=== PATIENT | female | born 1990 | race African-American/Black ===

== ENCOUNTER 2019-11-08 17:18 | Emergency (ER) | payer BC, SELFPAY ==
[2019-11-08 17:33] VITALS: BP 143/94; PULSE 84; RESP 16; TEMP 37.4; O2SAT 98
--- NOTE | 2019-11-08 17:43 | ED.DENTAL ---
HPI - Dental/Oral General Chief complaint: Dental/Oral Stated complaint: swollen gums Time Seen by Provider: 11/08/19 17:37 Source: patient and RN notes reviewed Mode of arrival: ambulatory Limitations: no limitations History of Present Illness HPI Narrative: Patient presents today complaining of right lower tooth and gum pain and upper jaw pain and swelling since yesterday. Pain has been worsening since onset. States she does have a broken tooth and her dentist cancelled her appointment due to the pandemic and has not yet rescheduled it. She currently rates her pain 10/10 and has been taking motrin without relief. Related Data Allergies Allergy/AdvReac Type Severity Reaction Status Date / Time No Known Allergies Allergy Verified 11/08/19 17:37 Review of Systems Constitutional: Constitutional: Denies chills and Denies fever(s) Eyes: Eyes: Reports as per HPI ENT: Denies dysphagia and Denies sore throat Comments: Denies difficulty swallowing. +tooth pain and jaw swelling. Cardiovascular: Cardiovascular: Reports as per HPI Respiratory: Respiratory: Reports as per HPI Gastrointestinal: Gastrointestinal: Reports as per HPI Musculoskeletal: Musculoskeletal: Reports as per HPI Integumentary/Breasts: Skin/Breast: Reports as per HPI Neurologic: Reports as per HPI Psychiatric: Psychiatric: Reports as per HPI PMFSH Comments Past Medical, surgical, and family hx reviewed and are noncontributory to presenting complaint. See nurses notes for more history. Exam Const: General: healthy appearing, no acute distress and alert Nutritional Appearance: well nourished Orientation/consciousness: patient oriented x3 HENMT: General nose exam: Normal external nose present, Normal nares present and no nasal discharge noted Mouth: Yes lip normal and Yes moist mucous membranes Other: large dental ruperto, tooth #30. No obvious periapical abscess. Mild swelling of the gingiva. Mild right upper jaw swelling. Otherwise normal dentition. Eyes: Conjunctivae: conjunctivae normal Pupils: Equal, round and reactive pupils present Neck: Neck: normal visual inspection and no lymphadenopathy Chest: Chest palpation & inspection: normal inspection of the chest Resp: Effort & Inspection: normal respiratory effort Skin: General skin exam: normal color, no jaundice and no pallor Rashes: no rashes Neuro: General: patient oriented x3, moves all extremities and no focal motor deficits Speech: normal speech Extrem: General: normal to inspection Psych: Mental Status: mental status grossly normal Affect: normal affect Attitude: cooperative Course Vital Signs Vital signs: Vital Signs Temperature 99.3 F 11/08/19 17:33 Pulse Rate 84 11/08/19 17:33 Respiratory Rate 16 11/08/19 17:33 Blood Pressure 143/94 H 11/08/19 17:33 Pulse Oximetry 98 11/08/19 17:33 Temperature 99.3 F 11/08/19 17:33 Pulse Rate 84 11/08/19 17:33 Respiratory Rate 16 11/08/19 17:33 Blood Pressure 143/94 H 11/08/19 17:33 Pulse Oximetry 98 11/08/19 17:33 Reviewed. patient has been instructed to follow up with her PCP regarding this. MDM - Dental/Oral Differential Diagnosis Differential diagnosis: Likely gingival abscess, dental caries, toothache, dental abscess and fracture of tooth Critical Care Time Critical Care Time Critical Care Time: No Discharge Plan Discharge Clinical Impression: Infected dental caries Patient Disposition: Home, Self-Care Condition: Stable Instructions: Antibiotic Form, Dental Abscess (ED) Additional Instructions: Take the amoxicillin as prescribed until gone. Take tylenol or motrin at home for pain. Follow up with your dentist as soon as possible. Your blood pressure is elevated today. Please follow up with your PCP regarding this. Patient Language: Slovak Prescriptions: New amoxicillin 875 mg tablet 875 mg PO Q12H 10 Days Qty: 20 RF: 0 Follow-up/Referrals: VERITO
== END 2019-11-08 17:49 | disposition home or self-care (01) ==
PROVIDERS: Emergency Provider Nurse Practitioner
DX: K02.9 Dental caries, unspecified (principal)
CPT/HCPCS: 99203; G0463

== ENCOUNTER 2020-02-26 09:44 | Outpatient (CLI) | payer BC, SELFPAY ==
--- NOTE | ~2020-02-26 | US_ITS ---
EXAMINATION: US pelvic complete w TV DATE: 02/26/2020 11:08 INDICATION: Infertility Comparison:No prior studies for comparison. TECHNIQUE: Multiple transabdominal and endovaginal sonographic images of the pelvis performed. FINDINGS: The uterus measures 9.5 x 5.4 x 8 cm. There is a uterine mass at the fundus measuring 4.8 x 4.9 x 4.7 cm, consistent with fibroid. The endometrial complex measures 1.4 cm. The right ovary measures 3.8 x 2.6 x 3.3 cm and the left ovary measures 2.6 x 2 x 1.8 cm. There is a 1.8 cm right ovarian cyst. There is free fluid in the pelvis. There are no abnormal masses seen on either side. IMPRESSION: 1. Uterine fibroid at the fundus measuring 4.9 cm maximum dimension. 2: Endometrial thickening measuring 1.4 cm. Reviewed, dictated and finalized at location A.
== END 2020-02-26 09:45 ==
PROVIDERS: Visit Provider Student in an Organized Health Care Education/Training Program
DX: Z78.0 Asymptomatic menopausal state (principal); D25.9 Leiomyoma of uterus, unspecified
CPT/HCPCS: 76830; 76856

== ENCOUNTER 2020-12-06 15:55 | Outpatient (CLI) | payer BC, SELFPAY ==
[2020-12-06 16:10] LABS: Basophils Absolute Auto 0.1 K/mm3 (0.0-0.1); Basophils Percent Auto 0.7 % (0.2-1.2); Eosinophils Absolute Auto 0.2 K/mm3 (0-0.3); Eosinophils Percent Auto 2.5 % (0-4.4); Hematocrit 34.6 % (37.0-47.0); Hemoglobin 11.2 g/dL (12.0-15.0); Immature Granulocyte Absolute 0.02 K/mm3 (0.00-0.031); Immature Granulocyte Percent A 0.3 % (0-0.5); Lymphocytes Percent Auto 36.3 % (18.3-44.2); Mean Corpuscular HGB Conc 32.4 g/dl (32-36); Mean Corpuscular Hemoglobin 29.5 pg (26-34); Mean Corpuscular Volume 91.1 fl (80-100); Mean Platelet Volume 9.4 fl (7.4-10.4); Monocytes Absolute Auto 0.5 K/mm3 (0.1-0.6); Monocytes Percent Auto 7.4 % (2.6-8.5); Neutrophils Absolute Auto 3.6 K/mm3 (1.3-6.7); Neutrophils Percent Auto 52.8 % (45.5-73.1); Platelet Count Result 569 k/mm3 (150-375); Red Cell Distribution Width 12.4 % (11.5-14.5); White Blood Count 6.9 K/mm3 (4.5-10.0)
[2020-12-06 16:59] LABS: Iron 48 ug/dL (37-170)
[2020-12-06 17:00] LABS: Erythrocyte Sedimentation Rate 65 mm/hr (0-20)
[2020-12-06 17:01] LABS: Alanine Aminotransferase 15 U/L (4-35); Albumin Level 4.1 g/dL (3.5-5.1); Alkaline Phosphatase 85 U/L (38-126); Anion Gap 7 mmol/L (8-16); Aspartate Amino Transferase 19 U/L (14-36); Bilirubin,Total < 0.1 mg/dL (0.2-1.3); Blood Urea Nitrogen 10 mg/dL (7-17); CRP 4.4 mg/dL (<1.0); Calcium 9.7 mg/dL (8.4-10.2); Carbon Dioxide 30 mmol/L (22-30); Chloride 101 mmol/L (98-107); Estimated Glomerular Filt Rate > 60; Glucose 92 mg/dL (65-105); Potassium 3.8 mmol/L (3.4-5.0); Sodium 138 mmol/L (137-145)
[2020-12-06 17:11] LABS: Percent Iron Saturation 15 % (20-50)
== END 2020-12-06 15:56 | disposition home or self-care (01) ==
LOC: ANHLAB 15:57
PROVIDERS: PCP Family Medicine; Visit Provider Internal Medicine Hematology & Oncology
DX: R79.89 Other specified abnormal findings of blood chemistry (principal); D50.0 Iron deficiency anemia secondary to blood loss (chronic)
CPT/HCPCS: 36415; 80053; 82728; 83540; 83550; 85025; 85652; 86140

== ENCOUNTER 2021-10-11 15:16 | Outpatient (CLI) | payer BC, SELFPAY ==
--- NOTE | ~2021-10-11 | US_ITS ---
US OB <=14 wk fetus w TV DATE: 10/11/2021 15:48 INDICATION: Vaginal spotting during first trimester TECHNIQUE: Real-time imaging via transabdominal and transvaginal approaches COMPARISON: 02/26/2020 pelvic ultrasound FINDINGS: The uterus measures 9.6 cm height, 5.6 cm anteroposterior and 6.3 cm transverse dimension. There is a large fundal fibroid measuring up to 6.3 cm x 6.2 x 5.4 cm. Intrauterine gestational sac is noted with yolk sac. Size is too small for accurate gestational datin g. Right ovary 6.9 x 6.5 x 5.8 cm with 5 x 6.9 x 6.3 cm cyst. Left ovary measures 3.4 x 2.9 x 1.9 cm. There is mild free fluid in the pelvis. IMPRESSION: Early intrauterine gestational sac is identified, too small to accurately date. Consider short-term follow-up ultrasound imaging Large uterine fibroid Up to 6.9 cm right ovarian cyst Reviewed, dictated and finalized at Location A. Reviewed, dictated and finalized at location A. IMPRESSION: Early intrauterine gestational sac is identified, too small to accu rately date. Consider short-term follow-up ultrasound imaging Large uterine fibroid Up to 6.9 cm right ovarian cyst
== END 2021-10-11 15:17 ==
PROVIDERS: Visit Provider Student in an Organized Health Care Education/Training Program
DX: O26.851 Spotting complicating pregnancy, first trimester (principal); O34.81 Maternal care for other abnormalities of pelvic organs, first trimester; Z3A.00 Weeks of gestation of pregnancy not specified; D25.9 Leiomyoma of uterus, unspecified; N83.201 Unspecified ovarian cyst, right side
CPT/HCPCS: 76801; 76817

== ENCOUNTER 2021-10-25 10:02 | Outpatient (CLI) | payer BC, SELFPAY ==
--- NOTE | ~2021-10-25 | US_ITS ---
EXAMINATION: US OB <=14 wk fetus w TV EXAM DATE: 10/25/2021 10:29 INDICATION: O20.9 - Hemorrhage in early , unspecified. 1st trimester. TECHNIQUE: Pelvic obstetrical transabdominal and transvaginal sonogram was performed by a technologi . There are multiple grayscale and Doppler images available for interpretation. Comparison is made to prior examination from 10/11/2021. FINDINGS: The uterus measures 12.1 x 5.8 x 8.6 cm, with intrauterine gestation sac and pole kaz ntified. The pole measures 1.0 cm, age by ultrasound 7 weeks 1 day. There is no cardiac a ctivity as would be expected for a pole this size. There is a 5.5 cm fibroid in the left side o f the uterus. Ovaries not visualized. IMPRESSION: demise. Reviewed, dictated and finalized at location B. IMPRESSION: demise.
== END 2021-10-25 10:03 ==
PROVIDERS: Visit Provider Student in an Organized Health Care Education/Training Program
DX: O02.1 Missed abortion (principal)
CPT/HCPCS: 76801; 76817

== ENCOUNTER 2021-11-02 14:54 | Outpatient (CLI) | payer BC, SELFPAY ==
--- NOTE | ~2021-11-02 | US_ITS ---
EXAMINATION: US pelvic complete w TV EXAM DATE: 11/02/2021 16:06 INDICATION: O03.4 - Incomplete spontaneous without complication . Retained products of casi ption. TECHNIQUE: Pelvic transabdominal and transvaginal sonogram was performed. There are multiple graysca le and Doppler images available for interpretation. Comparison is made to prior examination from 10/25. FINDINGS: Uterus measures 9.3 x 6.6 x 4.4 cm, previously seen intrauterine gestation is no longer id entified. Again there is a 6 cm fibroid. Endometrial stripe measures 6 mm, within normal limits. The re is no free pelvic fluid. Right adnexa: The ovary measures 3.5 x 2.8 x 1.8 cm and is morphologically normal. Ovarian vascular f low confirmed. Left adnexa: The ovary is not identified. There is no adnexal mass. IMPRESSION: No intrauterine or extrauterine identified. Fibroid. Reviewed, dictated and finalized at location A.
[2021-11-02 15:15] LABS: Hematocrit 32.3 % (37.0-47.0); Hemoglobin 10.3 g/dL (12.0-15.0); Mean Corpuscular HGB Conc 31.9 g/dl (32-36); Mean Corpuscular Hemoglobin 29.5 pg (26-34); Mean Corpuscular Volume 92.6 fl (80-100); Platelet Count Result 406 k/mm3 (150-375); Red Blood Count 3.49 M/mm3 (4.2-5.4); Red Cell Distribution Width 14.3 % (11.5-14.5); White Blood Count 4.2 K/mm3 (4.5-10.0)
== END 2021-11-02 14:55 | disposition home or self-care (01) ==
LOC: ANHIMG 14:55
PROVIDERS: Student in an Organized Health Care Education/Training Program; Visit Provider Obstetrics & Gynecology
DX: O03.4 Incomplete spontaneous abortion without complication (principal); D25.9 Leiomyoma of uterus, unspecified
CPT/HCPCS: 36415; 76830; 76856; 85027

== ENCOUNTER 2022-09-11 15:24 | Outpatient (CLI) | payer OTHER, MEDICAID, SELFPAY ==
[2022-09-15 04:00] LABS: Progesterone 31.5 ng/mL (***)
== END 2022-09-11 15:25 | disposition home or self-care (01) ==
PROVIDERS: Visit Provider Obstetrics & Gynecology
DX: O09.299 Supervision of pregnancy with other poor reproductive or obstetric history, unspecified trimester (principal); Z3A.00 Weeks of gestation of pregnancy not specified
CPT/HCPCS: 36415; 84144; 84702

== ENCOUNTER 2022-09-13 16:07 | Outpatient (CLI) | payer OTHER, MEDICAID, SELFPAY | END 2022-09-13 16:08 | disposition home or self-care (01) | LOC: ANHLAB 16:09 | PROVIDERS: Visit Provider Obstetrics & Gynecology | DX: O09.299 Supervision of pregnancy with other poor reproductive or obstetric history, unspecified trimester (principal) | CPT/HCPCS: 36415; 84702 ==

== ENCOUNTER 2022-09-30 15:03 | Outpatient (CLI) | payer OTHER, MEDICAID, SELFPAY ==
--- NOTE | ~2022-09-30 | US_ITS ---
EXAMINATION: US OB <=14 wk fetus w TV DATE: 09/30/2022 17:51 INDICATION: viability assessment during first trimester TECHNIQUE: Real-time pelvic transabdominal and transvaginal ultrasound was performed. COMPARISON: 11/02/2021 FINDINGS: The uterus measures 12.1 x 5.7 x 8.9 cm. There is an intrauterine gestational sac. A yolk s ac is identified. heart motion is identified measuring 169 beats per minute (bpm) by M-mode Dop pler. The crown rump length measures 1.7 cm, which correlates with an estimated gestational age of 8 weeks and 1 day(s) (+/-) 4 day(s). The right ovary measures 3.6 x 2.7 x 2.9 cm. A fibroid is again seen projecting into the left adnexa. There is no free fluid in the pelvis. IMPRESSION: 1. Live intrauterine with an estimated gestational age of 8 weeks and 1 day(s) (+/-) 4 day( s) and an estimated delivery date of 05/11/2023. Reviewed, dictated and finalized at location A. ANCE KEEPER IMPRESSION: 1. Live intrauterine with an estimated gestational age of 8 weeks and 1 day(s) (+/-) 4 day(s) and an estimated delivery date of 05/11/2023.
== END 2022-09-30 15:04 | disposition home or self-care (01) ==
PROVIDERS: PCP Emergency Medicine; Visit Provider Obstetrics & Gynecology
DX: O36.80X0 Pregnancy with inconclusive fetal viability, not applicable or unspecified (principal); Z3A.08 8 weeks gestation of pregnancy
CPT/HCPCS: 76801; 76817

== ENCOUNTER 2023-04-24 20:12 | Observation (INO) | payer OTHER, MEDICAID, SELFPAY ==
[2023-04-24] VITALS (19 sets, daily range): BP systolic 122–136; BP diastolic 69–101; PULSE 84–103; O2SAT 97–100
--- NOTE | 2023-04-24 21:24 | OBADM ---
This patient, Tonya Nichols, admitted to the OB room Labor/Delivery/Recovery 105 for observation. Patient/family oriented to hospital policies and general routines including ID bracelet, bed and alarms, visiting hours, pain management, procedures, bathroom and other care routines, personal items, smoking policy, room service/diet, and visiting hours. Patient/Family are encouraged to report perceived risks to care and to ask questions if they do not understand what they are told or what they should do.
[2023-04-24 21:51] LABS: Appearance Urine Clear (Clear); Bilirubin Urine Negative (Negative); Blood Urine Negative (Negative); Color Urine Yellow (Yellow); Glucose Urine UA Negative (Negative); Ketones Urine Negative (Negative); Leukocyte Esterase Ur Negative LEU/UL (Negative); Nitrate Urine Negative (Negative); Protein Urine Negative (Negative); Specific Grav Ur 1.011 (1.001-1.035); pH Urine 6.5 (5.0-9.0)
[2023-04-24 21:55] LABS: Add Urine Microscopic? NO
--- NOTE | 2023-04-28 11:10 | PM.OBTRLD ---
OB - Triage/Final Diagnosis Visit Information Comments/Additional reasons for admission: I have assessed the risk for this patient, Tonya Nichols, and determined that she would benefit from observation care. Evaluation Laboratory results: Laboratory Tests 04/24/23 21:44 Urine Color Yellow Urine Appearance Clear Urine pH 6.5 Ur Specific Dubberly 1.011 Urine Protein Negative Urine Glucose (UA) Negative Urine Ketones Negative Ur Blood (Man) Negative Urine Nitrate Negative Urine Bilirubin Negative Urine Urobilinogen 1.0 Leukocyte Esterase Rfl Negative Comments: I was not informed of patients last blood pressure. Prior to her discharge. Final Diagnosis (1) Threatened labor, antepartum: Code(s): O47.00 - False labor before 37 completed weeks of gestation, unspecified trimester Status: Acute
== END 2023-04-24 22:15 | disposition home or self-care (01) ==
PROVIDERS: Admitting Provider Obstetrics & Gynecology; PCP Emergency Medicine; Visit Provider Obstetrics & Gynecology
DX: O47.00 False labor before 37 completed weeks of gestation, unspecified trimester (principal); Z3A.00 Weeks of gestation of pregnancy not specified
CPT/HCPCS: 81003; G0378; G0379

== ENCOUNTER 2023-05-07 17:12 | Inpatient (IN) | payer OTHER, SELFPAY ==
[2023-05-07] VITALS (10 sets, daily range): BP systolic 97–139; BP diastolic 56–80; PULSE 92–104; TEMP 36.3; BMI 42.3
--- NOTE | 2023-05-07 17:43 | LDADM ---
This patient, Tonya Nichols, was admitted to Labor/Delivery/Recovery 105 on 05/07/23 at 17:12. Plans for labor, pain management and were discussed with patient. Patient/family oriented to hospital policies and general routines including ID bracelet, bed and alarms, visiting hours, pain management, procedures, bathroom and other care routines, personal items, smoking policy, room service/diet and guest tray routines, security routines, and visiting hours. Patient/Family are encouraged to report perceived risks to care and to ask questions if they do not understand what they are told or what they should do. See OBIX for further documentation.
[2023-05-07 18:42] LABS: Basophils Percent Auto 0.3 % (0.2-1.2); Eosinophils Absolute Auto 0.1 K/mm3 (0-0.3); Eosinophils Percent Auto 0.8 % (0-4.4); Hemoglobin 11.2 g/dL (12.0-15.0); Immature Granulocyte Absolute 0.05 K/mm3 (0.00-0.031); Immature Granulocyte Percent A 0.8 % (0-0.5); Lymphocytes Absolute Auto 1.56 K/mm3 (0.9-3.2); Lymphocytes Percent Auto 23.6 % (18.3-44.2); Mean Corpuscular HGB Conc 32.9 g/dl (32-36); Mean Corpuscular Hemoglobin 30.9 pg (26-34); Mean Corpuscular Volume 93.7 fl (80-100); Mean Platelet Volume 10.4 fl (7.4-10.4); Monocytes Absolute Auto 0.4 K/mm3 (0.1-0.6); Monocytes Percent Auto 6.2 % (2.6-8.5); Neutrophils Absolute Auto 4.5 K/mm3 (1.3-6.7); Neutrophils Percent Auto 68.3 % (45.5-73.1); Platelet Count Result 310 k/mm3 (150-375); Red Blood Count 3.63 M/mm3 (4.2-5.4); Red Cell Distribution Width 14.4 % (11.5-14.5); White Blood Count 6.6 K/mm3 (4.5-10.0)
[2023-05-07] MEDS: DINOPROSTONE 10 MG VAG INSERT VAGINAL (18:56)
--- NOTE | 2023-05-07 20:53 | WPDANESEPPF ---
Anes - Initial Pre Proc Eval Procedure: Labor epidural Date/Time: 05/07/23 20:53 Surgeon: Justin Yan MD Pre Op Diagnosis: Labor pain Pre Op Diagnosis: IOL Patient Data Age: 33 Gender: F Height: 1.5 m Weight: 95 kg Last Vital Signs Temp 36.3 C L 05/07/23 19:28 Pulse 99 05/07/23 20:31 BP 124/71 05/07/23 20:31 O2 Del Method Room Air 05/07/23 17:43 Allergies Allergy/AdvReac Type Severity Reaction Status Date / Time No Known Allergies Allergy Verified 05/01/23 10:56 Home Medications Medication Instructions Recorded Confirmed Type prenat.vits,delores,xvu-qmkx-qvbpx 1 tablet PO DAILY 05/15/22 05/07/23 History ferrous sulfate 325 mg (65 mg 325 mg PO DAILY 03/06/23 05/07/23 History iron) tablet Laboratory Tests 05/07/23 17:41 WBC 6.6 K/mm3 (4.5-10.0) RBC 3.63 L M/mm3 (4.2-5.4) Hgb 11.2 L g/dL (12.0-15.0) Hct 34.0 L % (37.0-47.0) MCV 93.7 fl (80-100) MCH 30.9 pg (26-34) MCHC 32.9 g/dl (32-36) RDW 14.4 % (11.5-14.5) Plt Count 310 k/mm3 (150-375) MPV 10.4 fl (7.4-10.4) Immature Gran % (Auto) 0.8 H % (0-0.5) Neut % (Auto) 68.3 % (45.5-73.1) Lymph % (Auto) 23.6 % (18.3-44.2) Tyler % (Auto) 6.2 % (2.6-8.5) Eos % (Auto) 0.8 % (0-4.4) Baso % (Auto) 0.3 % (0.2-1.2) Lymph # (Auto) 1.56 K/mm3 (0.9-3.2) Tyler # (Auto) 0.4 K/mm3 (0.1-0.6) Eos # (Auto) 0.1 K/mm3 (0-0.3) Baso # (Auto) 0.0 K/mm3 (0.0-0.1) Abs Immat Gran (auto) 0.05 H K/mm3 (0.00-0.031) Absolute Neuts (auto) 4.5 K/mm3 (1.3-6.7) Absolute Nucleated RBC 0.0 K/mm3 (0.0-0.012) Nucleated RBC % 0.0 % (0.0-0.2) RPR Pending Blood Type O Positive Antibody Screen Negative Patient hx anesthesia problems: none Family hx anesthesia problems: none Results Review: All pre-operative results and documents have been reviewed as part of the pre-operative evaluation. [facility] Past Medical History Medical History Encounter for other screening follow-up Irregular menses Missed x2 Oligomenorrhea Surgical History Surgical History History of abdominoplasty Family History Family History Mother Hypertension Diabetes mellitus Social History Social History Social History: Single Smoking status: Never smoker Second hand tobacco smoke exposure: No Alcohol intake: never Substance use: never Substance use type: does not use Lack of Transportation: No Lack of Food: Never True Current Housing: I Have Housing Concerned About Future Housing: No Difficulty Paying Gas/Electric Bills: No Difficulty Paying for Meds: No Currently Unemployed: No Education: Trade/Vocational Certificate Difficulty w/ Childcare or Family Care: No Living arrangements: alone Occupation/Education: occupation Gender identity (if verbalized by the patient): Female Spiritual care concerns: No Anes - Eval Final PreProcedure Day of Procedure 05/07/23 20:53 Patient weight: obese Heart: regular rate and rhythm Neurological: alert and oriented ASA classification: III Anesthesia type and monitoring: regional epidural and standard monitoring Results Review: All pre-operative results and documents have been reviewed as part of the pre-operative evaluation. Informed Consent: The patient's anesthetic plan and its attendant risks and benefits were discussed with the patient/family/POA. Questions were solicited and answers provided to the satisfaction of the patient/family/POA.
[2023-05-08] VITALS (251 sets, daily range): BP systolic 85–162; BP diastolic 35–141; PULSE 79–133; RESP 16–18; TEMP 36.2–36.8; O2SAT 91–100
[2023-05-08 07:23] LABS: Rapid Plasma Reagin Non-Reactive (NonReactive)
[2023-05-08] MEDS: OXYTOCIN 30 UNITS/NS 500 ML 30 UNITS/500 ML BAG 6 UNITS IV CONT (09:14)
[2023-05-08] MEDS: LACTATED RINGERS 1,000 ML 125 ML IV CONT ×2 (09:14→19:00)
--- NOTE | 2023-05-08 14:52 | PM.IMHP ---
H&P: HPI History of Present Illness Date/Time: 05/08/23 14:52 Chief Complaint: Medical induction of labort Narrative: She is a 33 y/o at 39 3/7 weeks by LMP Jul with an EDC of 05/11/2023 c/w 8 week ultrasound. She was admitted for MIL. PNC significant for GC txed and TONNY neg. Anterior lateral fibroid-6cm. Labs reviewed. GBS neg. Review of Systems Review of Systems: All systems reviewed & are unremarkable except as noted in HPI and below Constitutional: Constitutional: Reports no additional constitutional complaints and Denies headache(s) Eyes: Eyes: Denies spots in vision ENT: Reports system reviewed and no additional complaints, except as documented and Denies headache(s) Cardiovascular: Cardiovascular: Denies chest pain and Denies dyspnea Respiratory: Respiratory: Denies dyspnea Gastrointestinal: Gastrointestinal: Reports no additional gastrointestinal complaints Genitourinary: Genitourinary: Reports amenorrhea Musculoskeletal: Musculoskeletal: Reports no additional musculoskeletal complaints Integumentary/Breasts: Skin/Breast: Denies breast mass and Denies rash Neurologic: Denies headache(s) Psychiatric: Psychiatric: Reports no additional psychiatric complaints [facility] Past Medical History Medical History Encounter for other screening follow-up Irregular menses Missed x2 Oligomenorrhea Surgical History Surgical History History of abdominoplasty Family History Family History Mother Hypertension Diabetes mellitus Social History Social History Social History: Single Smoking status: Never smoker Second hand tobacco smoke exposure: No Alcohol intake: never Substance use: never Substance use type: does not use Lack of Transportation: No Lack of Food: Never True Current Housing: I Have Housing Concerned About Future Housing: No Difficulty Paying Gas/Electric Bills: No Difficulty Paying for Meds: No Currently Unemployed: No Education: Trade/Vocational Certificate Difficulty w/ Childcare or Family Care: No Living arrangements: alone Occupation/Education: occupation Gender identity (if verbalized by the patient): Female Spiritual care concerns: No Meds Home Medications and Allergies Home Medications Medication Instructions Recorded Confirmed Type prenat.vits,delores,ety-vnvy-kwvab 1 tablet PO DAILY 05/15/22 05/07/23 History ferrous sulfate 325 mg (65 mg 325 mg PO DAILY 03/06/23 05/07/23 History iron) tablet Allergies Allergy/AdvReac Type Severity Reaction Status Date / Time No Known Allergies Allergy Verified 05/01/23 10:56 Vital Signs Vital Signs - 24 hr 05/07/23 17:43 05/07/23 18:36 05/07/23 18:46 Temperature Pulse Rate 104 H 95 Respiratory Rate Blood Pressure 132/80 139/76 Pulse Oximetry Oxygen Delivery Room Air 05/07/23 19:01 05/07/23 19:31 05/07/23 20:01 Temperature Pulse Rate 96 94 93 Respiratory Rate Blood Pressure 130/78 128/80 128/77 Pulse Oximetry Oxygen Delivery 05/07/23 20:31 05/07/23 19:28 05/07/23 21:01 Temperature 97.4 F L Pulse Rate 99 97 Respiratory Rate Blood Pressure 124/71 128/60 Pulse Oximetry Oxygen Delivery 05/07/23 22:54 05/07/23 22:53 05/08/23 02:54 Temperature 97.3 F L 97.1 F L Pulse Rate 92 79 Respiratory Rate Blood Pressure 97/56 L 121/71 Pulse Oximetry Oxygen Delivery 05/08/23 07:00 05/08/23 09:14 05/08/23 09:31 Temperature 97.9 F 97.9 F Pulse Rate 87 Respiratory Rate 18 16 Blood Pressure 144/80 H Pulse Oximetry Oxygen Delivery 05/08/23 09:46 05/08/23 10:01 05/08/23 10:16 Temperature Pulse Rate 133 H 96 86 Respiratory Rate Blood Pressure
--- NOTE | 2023-05-08 15:02 | P.PNOB_ITS ---
OB - PN: Subj Subjective Date/time seen: 05/08/23 0715 Interval history: fht 135 Cat 1, ctx q 4-5, cervix 2/60/-2, AROM minimal clear fluid. Continue Pitocin induction. OB - PN: Obj Data Labs 05/07/23 17:41 Labs: Laboratory Results - last 24 hr 05/07/23 17:41 WBC 6.6 RBC 3.63 L Hgb 11.2 L Hct 34.0 L MCV 93.7 MCH 30.9 MCHC 32.9 RDW 14.4 Plt Count 310 MPV 10.4 Immature Gran % (Auto) 0.8 H Neut % (Auto) 68.3 Lymph % (Auto) 23.6 Harney % (Auto) 6.2 Eos % (Auto) 0.8 Baso % (Auto) 0.3 Lymph # (Auto) 1.56 Harney # (Auto) 0.4 Eos # (Auto) 0.1 Baso # (Auto) 0.0 Abs Immat Gran (auto) 0.05 H Absolute Neuts (auto) 4.5 Absolute Nucleated RBC 0.0 Nucleated RBC % 0.0 RPR Non-reactive Blood Type O Positive Antibody Screen Negative OB - PN A/P Time Spent With Patient Time: Total time spent is greater than 50% in coordination of care (as documented) at patient's floor/unit and/or counseling patient:
--- NOTE | 2023-05-08 15:03 | P.PNOB_ITS ---
OB - PN: Subj Subjective Date/time seen: 05/08/23 15:03 Interval history: fht 135 Cat 1, ctx q 4-5, cervix 60/-2, AROM minimal clear fluid. Continue Pitocin induction. Narrative: FHT 135, cat 1, pt feels rectal pressure and pain on right hip, cervix 60/-2. OB - PN: Obj Data Labs 05/07/23 17:41 Labs: Laboratory Results - last 24 hr 05/07/23 17:41 WBC 6.6 RBC 3.63 L Hgb 11.2 L Hct 34.0 L MCV 93.7 MCH 30.9 MCHC 32.9 RDW 14.4 Plt Count 310 MPV 10.4 Immature Gran % (Auto) 0.8 H Neut % (Auto) 68.3 Lymph % (Auto) 23.6 Wheeler % (Auto) 6.2 Eos % (Auto) 0.8 Baso % (Auto) 0.3 Lymph # (Auto) 1.56 Wheeler # (Auto) 0.4 Eos # (Auto) 0.1 Baso # (Auto) 0.0 Abs Immat Gran (auto) 0.05 H Absolute Neuts (auto) 4.5 Absolute Nucleated RBC 0.0 Nucleated RBC % 0.0 RPR Non-reactive Blood Type O Positive Antibody Screen Negative OB - PN A/P Time Spent With Patient Time: Total time spent is greater than 50% in coordination of care (as documented) at patient's floor/unit and/or counseling patient:
[2023-05-08] MEDS: CALCIUM CARBONATE (TUMS) 500 MG (200 MG ELEMENTAL) 400 MG PO (20:25)
[2023-05-09] VITALS (164 sets, daily range): BP systolic 106–164; BP diastolic 55–115; PULSE 77–125; RESP 16–24; TEMP 36.2–37.5; O2SAT 89–100
[2023-05-09] MEDS: LACTATED RINGERS 1,000 ML 125 ML IV CONT ×2 (00:52→05:22)
[2023-05-09] MEDS: AMPICILLIN 2 GM/NS 100 ML 2 GM/100 ML BAG IVPB (01:24)
[2023-05-09] MEDS: SODIUM CHLORIDE 0.9% IV 300 ML 600 ML I-UTERINE (03:15)
[2023-05-09] MEDS: AMPICILLIN 1 GM/NS 50 ML 1 GM/50 ML BAG IVPB (05:21)
[2023-05-09] MEDS: ceFAZolin 2 GM/D5W 50 ML 2 GM/50 ML BAG IVPB (07:57)
[2023-05-09] MEDS: AZITHROMYCIN 500 MG/NS 250 ML 500 MG/250 ML BAG 250 MG IVPB (08:19)
[2023-05-09] MEDS: FAMOTIDINE 20 MG/2 ML VIAL IV PUSH (08:21)
[2023-05-09] MEDS: ONDANSETRON INJ 4 MG/2 ML VIAL IV PUSH (08:21)
[2023-05-09] MEDS: miSOPROStol 200 MCG TABLET 1000 MCG RECTAL (09:00)
--- NOTE | 2023-05-09 09:58 | PM.OP ---
Procedure Note - Brief Procedure Note - Brief Date of procedure: 05/09/23 1. Failure to progress 2. intolerance to labor Post-op diagnosis: Same Procedure performed: Primary low transverse section Surgeon: Justin Yan MD Anesthesia: MEÑO Estimated blood loss (mL): 440 Drains: No Packing: No Pathology: Yes (placenta and cord) Complications: No immediate complications Condition: Stable Disposition: Floor
[2023-05-09] MEDS: KETOROLAC 30 MG/ML VIAL (*BKC) IV PUSH (10:03)
[2023-05-09] MEDS: OXYTOCIN 30 UNITS/NS 500 ML 30 UNITS/500 ML BAG 125 UNITS IV CONT (10:13)
[2023-05-09] MEDS: FENTANYL 600MCG/NS30MLPCA(*CRX 600 MCG/30 ML PCA.VIAL IV CONT (12:59)
[2023-05-09] MEDS: DEXTROSE 5%/0.45% SOD CHL 1,000 ML 125 ML IV CONT (15:54)
[2023-05-09] MEDS: ceFAZolin 1 GM/NS 50 ML 1 GM/50 ML BAG IVPB (15:55)
--- NOTE | 2023-05-09 16:30 | W.PM.PROC2 ---
Procedure Note - Detailed Date of Procedure 05/09/23 Pre-op Diagnosis 1. Failure to progress 2. intolerance to labor remote from delivery Post-op Diagnosis Same Procedure Performed Primary low transverse section Surgeon Justin Yan MD Anesthesia General Indications Patient is a 33 y/o P0 MIL with cervidil then Pitocin. She had AROM the morning of 05/08, clear fluid. She was continued on Pitocin. She did have an IUPC placed. She progressed slowly in latent labor. In active labor she made slow change. IUPC was placed to better assess contraction pattern. The pitocin was stopped and Tums given due to dysfunctional pattern. Pitocin was resumed and she made slow cervical change, tracing with intermittent episodes of variable decelerations, amnioinfusion started. There was occasional late deceleration resolved with position change. Through out labor she did have to get epidural replaced. She did not have complete analgesia block. The morning of May 09, on exam, cervix was 7-8, caput 0 station but noncaput was -1, swelling of cervix noted,and large caput, decrease variability noted with tracing. She was informed of recommendation for primary section for failure to progress and intolerance to labor remote from delivery. Risk benefits of section discussed. She agreed to primary section. Findings Female in OT position, one loose nuchal cord manually reduced, apgars, 4,7. Left intramural fibroid approx 6cm near broad ligament. Description of Procedure After informed consent, risks and benefits of the procedure was discussed with the patient. The patient was taken to the operating room where she was placed in the dorsal lithotomy position with leftward tilt. She was prepped and draped in sterile fashion. The prior placed epidural anesthesia was found to provide inadequate analgesia and she was informed of need for general anesthesia. Once intubated, a Pfannenstiel skin incision was made with a scalpel and carried through to the underlying layer of fascia. The fascia was then nicked in the midline, extending bilaterally. The fascia was dissected off the rectus muscles bluntly and sharply, superiorly and inferiorly. The rectus muscles were in the midline, and peritoneum was identified and entered bluntly. The pelvic organs were visualized. The bladder blade was then inserted. The vesicouterine peritoneum was identified and entered sharply with Metzenbaum scissors and extended bilaterally and then the bladder flap was created digitally. The low transverse uterine incision was then made with the scalpel and extended with bilateral index fingers in a crescent-shaped fashion. The head was delivered, loose nuchal cord manually reduced, and the rest of the was delivered. The nose and mouth suctioned. The cord was doubly clamped and cut. The was crying and handed to the pedicatric staff in attendance. The placenta was then delivered manually. The uterine cavity was sponge curetted. The uterus was then exteriorized. The uterine incision was then closed with 0 vicryl in a running locked fashion. Hemostasis noted. A second layer of 0 vicryl was used in an imbricating fashion for hemostasis. The posterior culdesac was irrigated. The uterus was then returned to the abdomen. Bilateral gutters were cleared off all clots and debris. The uterine incision was noted to be hemostatic. Interceed placed on uterine incision and vertically on front of uterus. The muscle bellies were inspected and noted to be hemostatic. The subfascial layer was noted to be hemostatic, and the fascia was closed with 0 Vicryl in a running fashion x 2 sutures. The subcutaneous layer was irrigated. Hemostasis obtained with cautery and the subcutaneous layer was approximated with 3-0 Vicryl. The skin was closed with Ensorb alexandro. Skin dermabond applied at incision. All instruments, needle, and lap counts were correct x3. The srinie
--- NOTE | 2023-05-09 16:48 | PM.OBDSVD ---
DS: Admitting Diagnosis Discharge Date 05/11/23 Admitting Diagnosis Medical induction of labor DS: Discharge Diagnosis Discharge Diagnosis Plan 1. Failure to progress 2. intolerance to labor. OB - DS: Summary Hospital Course Hospital Course: She was admitted for MIL. Induction significant for failure to progress and intolerance to labor for which she had an uncomplicated section. She did well post op. On post op day one she was tolerating regular diet and ambulating well and had adequate pain control. By POD 2 she had flatus and was doing well. Baby was doing well and she was discharged to home. OB Procedures : Ultrasound OB Procedures Intrapartum: OB Procedures: : None Peripartum Data Delivery Method: Section Procedures: Procedures Operation Date: 05/09/23 07:45 Actual Procedure Side Surgeon p Section Not Applicable Justin Yan MD Status at Discharge Functional status at discharge: independent ambulation Time Spent with Patient Time attestation: Total time spent providing and/or coordinating discharge services: Exam Const: General: cooperative Orientation/consciousness: oriented to person, oriented to place and oriented to time HENMT: Face/Nose/Sinus: Normal external nose present Eyes: General: appearance normal, both eyes and all related structures Resp: Effort & Inspection: normal respiratory effort GI: Inspection: normal to inspection Other: incision intact Skin: General skin exam: normal color Neuro: General: oriented to person, oriented to place and oriented to time Extrem: General: normal to inspection and no calf tenderness Psych: Appearance: grossly normal Mental Status: mental status grossly normal DS: Data Data Completed and Pending Pending studies at discharge: Pending at discharge 05/09/23 09:54 Surgical [PTH] Routine Discharge Plan Discharge Attending physician on discharge: Justin Yan Consulting providers: Mike Faulkner; Adrianna Joy; Korin Cervantes Discharging Clinician: Sotero Parks Patient Disposition: Home, Self-Care Activity: may shower, no straining, no driving and pelvic rest Diet: regular Discharge Instructions: Education: Mom and Baby Guide Given to: Mother Follow-Up: Call your delivering provider's office for an appointment to be seen in: Call for appt. Mom and baby should come to the [facility] for the follow-up appointment. Appointment Date/Time: May 12, 2023 at 8:00 am What to expect at your follow-up visit: Physical Assessment Call [phone] if you are unable to keep your appointment time. BREAST CARE: * Wear a snug supportive bra. * For engorgement discomfort: Breast Feeding: * Apply warm moist washcloths * Express milk as needed to relieve engorgement * Wear loose clothing Bottle Feeding: * May apply ice packs * For sore nipples: * Identify correct latch-on * Apply warm moist washcloths before and after nursing * Air dry nipples after nursing * May apply Lansinoh cream to nipples PERINEAL CARE: * Until bleeding stops, use your deangelo bottle after urinating * Change your pad frequently throughout the day * No tub baths until seen by your physician - You may shower ACTIVITY: * Rest as much as possible. * Do not exercise or lift anything heavier than your baby (such as laundry or other children.) * Avoid stairs or driving as much as possible. * Do not put anything into the vagina. No douching, tampons, or sexual activity until seen by physician. NOTIFY PHYSICIAN IF YOU HAVE ANY QUESTIONS OR IF ANY OF THE FOLLOWING SYMPTOMS OCCUR: * If your incision becomes red, swollen, or more painful than what you have experienced in the hospital. * If your vaginal bleeding becomes foul smelling. * If your vaginal bleeding becomes mor
[2023-05-09] MEDS: DOCUSATE SODIUM 100 MG CAPSULE PO (17:09)
[2023-05-09] MEDS: HYDROcodone/acetaminophen (*CRX) 5-325 MG TABLET 1 TAB PO (19:19)
[2023-05-09] MEDS: IBUPROFEN 600 MG TABLET PO (19:19)
[2023-05-10] MEDS: ceFAZolin 1 GM/NS 50 ML 1 GM/50 ML BAG IVPB ×2 (00:18→08:41)
[2023-05-10] MEDS: HYDROcodone/acetaminophen (*CRX) 5-325 MG TABLET 1 TAB PO ×4 (00:25→22:48)
[2023-05-10] MEDS: IBUPROFEN 600 MG TABLET PO ×2 (03:59→16:44)
[2023-05-10 04:00] VITALS: BP 115/77; PULSE 88; RESP 18; TEMP 36.4; O2SAT 98
[2023-05-10 05:55] LABS: Basophils Absolute Auto 0.1 K/mm3 (0.0-0.1); Basophils Percent Auto 0.3 % (0.2-1.2); Eosinophils Percent Auto 0.3 % (0-4.4); Hematocrit 31.3 % (37.0-47.0); Hemoglobin 10.2 g/dL (12.0-15.0); Immature Granulocyte Absolute 0.19 K/mm3 (0.00-0.031); Immature Granulocyte Percent A 1.2 % (0-0.5); Lymphocytes Absolute Auto 2.01 K/mm3 (0.9-3.2); Mean Corpuscular HGB Conc 32.6 g/dl (32-36); Mean Corpuscular Hemoglobin 31.3 pg (26-34); Monocytes Absolute Auto 1.4 K/mm3 (0.1-0.6); Monocytes Percent Auto 8.8 % (2.6-8.5); Neutrophils Absolute Auto 11.9 K/mm3 (1.3-6.7); Neutrophils Percent Auto 76.4 % (45.5-73.1); Platelet Count Result 267 k/mm3 (150-375); Red Blood Count 3.26 M/mm3 (4.2-5.4); Red Cell Distribution Width 14.5 % (11.5-14.5); White Blood Count 15.5 K/mm3 (4.5-10.0)
[2023-05-10 06:45] VITALS: BP 124/74; PULSE 91; RESP 18; TEMP 36.4
[2023-05-10] MEDS: MULTIVIT/MIN/PREN/FOL AC/IRON TABLET 1 TAB PO (08:41)
[2023-05-10] MEDS: TETANUS,DIPHTHERIA,AC PERTUSSIS ADULT (0.5 ML) BOOSTRIX IM (08:41)
[2023-05-10] MEDS: DOCUSATE SODIUM 100 MG CAPSULE PO ×2 (08:41→16:44)
--- NOTE | 2023-05-10 10:59 | P.PNOB_ITS ---
OB - PN: Subj Subjective Date/time seen: 05/10/23 10:59 Interval history: fht 135 Cat 1, ctx q 4-5, cervix 2/60/-2, AROM minimal clear fluid. Continue Pitocin induction. Patient comments: no complaints, pain well controlled, tolerating diet and flatus present OB - PN: Obj Data Labs 05/10/23 04:05 Labs: Laboratory Results - last 24 hr 05/10/23 04:05 WBC 15.5 H RBC 3.26 L Hgb 10.2 L Hct 31.3 L MCV 96.0 MCH 31.3 MCHC 32.6 RDW 14.5 Plt Count 267 MPV 11.0 H Immature Gran % (Auto) 1.2 H Neut % (Auto) 76.4 H Lymph % (Auto) 13.0 L [place] % (Auto) 8.8 H Eos % (Auto) 0.3 Baso % (Auto) 0.3 Lymph # (Auto) 2.01 [place] # (Auto) 1.4 H Eos # (Auto) 0.0 Baso # (Auto) 0.1 Abs Immat Gran (auto) 0.19 H Absolute Neuts (auto) 11.9 H Absolute Nucleated RBC 0.0 Nucleated RBC % 0.0 OB - PN A/P Plan day: 1 Plan: routine care Comments: patient doing well H/H stable afebrile, VSS incision C/D/I stevens removed, voiding spontaneously continue routine post op care Time Spent With Patient Time: Total time spent is greater than 50% in coordination of care (as documented) at patient's floor/unit and/or counseling patient: Time with patient: less than 15 minutes Review of Systems Constitutional: Constitutional: Reports no additional constitutional com plaints Cardiovascular: Cardiovascular: Reports no additional cardiovascular complaints Respiratory: Respiratory: Reports no additional respiratory complaints Gastrointestinal: Gastrointestinal: Reports no additional gastrointestinal complaints Genitourinary: Genitourinary: Reports no additional female genitourinary complaints Exam Const: General: comfortable and no acute distress Resp: Effort & Inspection: normal respiratory effort Auscultation: clear to auscultation bilaterally Cardio: Rate: regular rate GI: GI Palp: Yes Soft to palpation, Yes Tenderness to palpation present (GI) (around incision ) and No Guarding due to palpation present (GI) Auscultation: normal bowel sounds Other: incision C/D/I, covered with Dermabond Psych: Appearance: grossly normal Mental Status: mental status grossly normal Affect: normal affect
--- NOTE | 2023-05-10 11:41 | WPDANESPN ---
Anes - Prog Note Post-Op Date/Time: 05/10/23 11:41 Cardiovascular status: normal Respiratory status: normal Airway patency: baseline Mental status: baseline Post-Op hydration status: normal Vital Signs: Last Vital Signs Temp 36.4 C L 05/10/23 06:45 Pulse 91 05/10/23 06:45 Resp 18 05/10/23 06:45 BP 124/74 05/10/23 06:45 Pulse Ox 98 05/10/23 04:00 O2 Del Method Room Air 05/09/23 11:10 O2 Flow Rate 1 05/09/23 10:40 Pain Score (VAS): 2 I/O: Intake & Output 05/09/23 05/10/23 05/10/23 23:59 07:59 15:59 Intake Total 1055.0 50 Output Total 500 Balance 555.0 50 Laboratory Tests 05/10/23 04:05 05/10/23 04:05 WBC 15.5 H RBC 3.26 L Hgb 10.2 L Hct 31.3 L MCV 96.0 MCH 31.3 MCHC 32.6 RDW 14.5 Plt Count 267 MPV 11.0 H Immature Gran % (Auto) 1.2 H Neut % (Auto) 76.4 H Lymph % (Auto) 13.0 L [place] % (Auto) 8.8 H Eos % (Auto) 0.3 Baso % (Auto) 0.3 Lymph # (Auto) 2.01 [place] # (Auto) 1.4 H Eos # (Auto) 0.0 Baso # (Auto) 0.1 Abs Immat Gran (auto) 0.19 H Absolute Neuts (auto) 11.9 H Absolute Nucleated RBC 0.0 Nucleated RBC % 0.0 Post-procedural complaints: none Patient Feedback: Patient satisfied with anesthetic care.
--- NOTE | 2023-05-10 11:41 | WPDANLDPN2 ---
Anes-Prog Note L&D Date/Time: 05/10/23 11:41 Comfortable throughout: labor Neuraxial method: epidural Epidural/Spinal procedure site: clean & non-tender Neuro status: Neuro function grossly intact. Cardiovascular status: normal Respiratory status: normal Airway patency: baseline Mental status: baseline Post-Op hydration status: normal Vital Signs: Last Vital Signs Temp 36.4 C L 05/10/23 06:45 Pulse 91 05/10/23 06:45 Resp 18 05/10/23 06:45 BP 124/74 05/10/23 06:45 Pulse Ox 98 05/10/23 04:00 O2 Del Method Room Air 05/09/23 11:10 O2 Flow Rate 1 05/09/23 10:40 Pain score (VAS): 2 I/O: Intake & Output 05/09/23 05/10/23 05/10/23 23:59 07:59 15:59 Intake Total 1055.0 50 Output Total 500 Balance 555.0 50 Post-procedural complaints: none Patient feedback: Patient satisfied with anesthetic care.
[2023-05-10 20:00] VITALS: BP 132/83; PULSE 102; RESP 18; TEMP 37.1; O2SAT 99
[2023-05-11] MEDS: HYDROcodone/acetaminophen (*CRX) 5-325 MG TABLET 1 TAB PO (04:31)
[2023-05-11] MEDS: IBUPROFEN 600 MG TABLET PO (04:31)
--- NOTE | 2023-05-11 08:00 | PM.OBDSVD ---
DS: Admitting Diagnosis Discharge Date 05/11/23 OB - DS: Summary Hospital Course Hospital Course: Patient admitted for medical induction of labor. Labor course significant for failure to progress and she had an uncomplicated primary section. OB Procedures : None OB Procedures Intrapartum: OB Procedures: : None Peripartum Data Infant Delivery Method: Section Procedures: Procedures Operation Date: 05/09/23 07:45 Actual Procedure Side Surgeon p Section Not Applicable Justin Yan MD complications: none Status at Discharge Functional status at discharge: independent ambulation Overall status at discharge: patient is progressing back to baseline Time Spent with Patient Time attestation: Total time spent providing and/or coordinating discharge services: Time spent: Less than 30 minutes Exam Const: General: comfortable and no acute distress Resp: Effort & Inspection: normal respiratory effort Auscultation: clear to auscultation bilaterally Cardio: Rate: regular rate GI: Inspection: non-distended GI Palp: Yes Soft to palpation, No Firmness to palpation present (GI), Yes Tenderness to palpation present (GI) (mild tenderness over incision ) and No Guarding due to palpation present (GI) Auscultation: normal bowel sounds Psych: Appearance: grossly normal Mental Status: mental status grossly normal DS: Data Data Completed and Pending Pending studies at discharge: Pending at discharge 05/09/23 09:54 Surgical [PTH] Routine Labs on day of discharge: Labs from last 24 hours 05/10/23 04:05 WBC 15.5 H RBC 3.26 L Hgb 10.2 L Hct 31.3 L MCV 96.0 MCH 31.3 MCHC 32.6 RDW 14.5 Plt Count 267 MPV 11.0 H Immature Gran % (Auto) 1.2 H Neut % (Auto) 76.4 H Lymph % (Auto) 13.0 L [place] % (Auto) 8.8 H Eos % (Auto) 0.3 Baso % (Auto) 0.3 Lymph # (Auto) 2.01 [place] # (Auto) 1.4 H Eos # (Auto) 0.0 Baso # (Auto) 0.1 Abs Immat Gran (auto) 0.19 H Absolute Neuts (auto) 11.9 H Absolute Nucleated RBC 0.0 Nucleated RBC % 0.0 Discharge Plan Discharge Attending physician on discharge: Justin Yan Consulting providers: Mike Faulkner Discharging Clinician: Sotero Parks Patient Disposition: Home, Self-Care Activity: may shower, no straining, no driving and pelvic rest Diet: regular Patient Instructions: Antibiotic Form, (DC) Stand Alone Forms: General Discharge Information Follow-up/Referrals: Justin Yan MD [Physician] - Call for Appointment (Two week follow up) Discharge Medications: New hydrocodone-acetaminophen 5-325 mg tablet 1 tablet PO Q6H PRN (Reason: pain) Qty: 28 0RF ibuprofen 600 mg tablet 600 mg PO Q6H PRN (Reason: pain) Qty: 30 0RF Continued prenat.vits,delores,[id number] Tablet 1 tablet PO DAILY ferrous sulfate 325 mg (65 mg iron) tablet 325 mg PO DAILY Date of admission: 05/07/23 17:12 Primary Care Provider: Chris Schulz Admitting Provider: Justin Yan Attending physician on admission: Justin Yan
[2023-05-11 08:15] VITALS: BP 115/76; PULSE 77; RESP 18; TEMP 36.6
[2023-05-11] MEDS: MULTIVIT/MIN/PREN/FOL AC/IRON TABLET 1 TAB PO (11:54)
[2023-05-11] MEDS: DOCUSATE SODIUM 100 MG CAPSULE PO (11:54)
== END 2023-05-11 14:40 | disposition home or self-care (01) | DRG 788 ==
LOC: ANHOB2 05-11 12:05 → ANHLDR 05-13 11:16 → ANHOB2 05-13 11:16
PROVIDERS: Admitting Provider Obstetrics & Gynecology; PCP Emergency Medicine; Visit Provider Student in an Organized Health Care Education/Training Program
PROC: 10D00Z1 Extraction of Products of Conception, Low, Open Approach (ICD-10-PCS; CPT 59514; principal; 2023-05-09 07:45)
DX: O32.4XX0 Maternal care for high head at term, not applicable or unspecified (principal); O62.2 Other uterine inertia; Z23 Encounter for immunization; O76 Abnormality in fetal heart rate and rhythm complicating labor and delivery; O69.81X0 Labor and delivery complicated by cord around neck, without compression, not applicable or unspecified; Z3A.39 39 weeks gestation of pregnancy; Z37.0 Single live birth; O42.92 Full-term premature rupture of membranes, unspecified as to length of time between rupture and onset of labor
CPT/HCPCS: 36415; 85025; 86592; 86850; 86900; 86901; 88307; 90471; 90686; 90715; A9270; G0008; J0290; J0330; J0456; J0690; J1885; J2274; J2371; J2405; J2590; J2704; J2795; J3010; J7030; J7120